=== PATIENT | male | born 1950 | race Two or more races ===

== ENCOUNTER 2017-04-17 00:25 | Emergency (ER) | payer OTHER ==
[~2017-04-17] VITALS: Ht 172.7 cm; Wt 88.5 kg
--- NOTE | 2017-04-17 00:35 | NUR ---
to bed 3 bib family members c/o worsening sob tonight. pt aaox4, place pt on cardiac monitoring, continuous pox, o2@2l/nc. er md at bedside to eval pt with orders received. will carry out orders.
[2017-04-17 00:56] LABS: BASOPHILS % (AUTO) 0.4 % (0.0-2.0); EOSINOPHILS # (AUTO) 0.3 /CMM (0.0-0.7); HEMATOCRIT 47 % (39-51); HEMOGLOBIN 15.8 g/dL (13.5-17.5); LYMPHOCYTES # (AUTO) 2.4 /CMM (0.8-4.8); LYMPHOCYTES % (AUTO) 27.2 % (20.0-44.0); MEAN CORPUSCULAR HEMOGLOBIN 33 PG (26.0-33.0); MEAN CORPUSCULAR HGB CONC 33 g/dl (31.0-36.0); MEAN CORPUSCULAR VOLUME 98 fL (80-96); MONOCYTES # (AUTO) 1.1 /CMM (0.1-1.30); MONOCYTES % (AUTO) 12.7 % (2.0-12.0); NEUTROPHILS # (AUTO) 4.8 /CMM (1.8-8.9); NEUTROPHILS % (AUTO) 55.7 % (43.0-81.0); PLATELET COUNT (AUTO) 173 /CMM (150-450); RDW COEFFICIENT OF VARIATION 13.7 (11.5-15.0); RED BLOOD CELL COUNT(AUTO) 4.85 MIL/uL (4.5-6.0); WHITE BLOOD COUNT (AUTO) 8.7 K/uL (4.3-11.0)
[2017-04-17 01:08] LABS: CARBON DIOXIDE 26 mmol/L (21-32); CHLORIDE 104 mmol/L (98-107); GLUCOSE 144 mg/dL (74-106); POTASSIUM 3.7 mmol/L (3.5-5.1); SODIUM SERUM 141 mmol/L (136-145); UREA NITROGEN, BLOOD 25 mg/dL (7-18)
[2017-04-17 01:16] LABS: TROPONIN I < 0.017 ng/mL (0.00-0.056)
[2017-04-17 01:18] LABS: INR 0.93 (0.87-1.13); PROTHROMBIN TIME 9.7 SECS (9.5-12.7)
[2017-04-17 01:21] LABS: ALANINE AMINOTRANSFERASE 30 U/L (12-78); ALBUMIN 3.5 g/dL (3.4-5.0); ALKALINE PHOSPHATASE 59 U/L (46-116); ASPARTATE AMINOTRANSFERASE 19 U/L (15-37); B-TYPE NATRIURETIC PEPTIDE 177 PG/ML (0-125); BILIRUBIN,DIRECT 0.1 mg/dL (0.0-0.2); BILIRUBIN,TOTAL 0.6 mg/dL (0.2-1.0)
--- NOTE | 2017-04-17 01:37 | NUR ---
rt at bedside to give hhn tx.
[2017-04-17] MEDS ORDERED: ALBUTEROL FS 2.5 MG/0.5 ML VIAL.NEB NEB ONE (02:00)
--- NOTE | 2017-04-17 02:29 | NUR ---
DR. LUDWIG AT BEDSIDE SPEAKING TO PT/FAMILY REGARDING RESULTS.
--- NOTE | 2017-04-17 02:42 | NUR ---
Patient discharged to home in stable condition. Written and verbal after care instructions given. Patient verbalizes understanding of instruction. ambulatory with a steady gait. pt aaox4 no acute distress noted, resp even and unlabored. pt sister at bedside to take pt home.
[2017-04-17 02:43] VITALS: BP 134/72
== END 2017-04-17 02:44 | disposition home or self-care (01) ==
LOC: ER 00:28
DX: J98.01 Acute bronchospasm (principal); I10 Essential (primary) hypertension
CPT/HCPCS: 36415; 71010; 80048; 80076; 83605; 83880; 84484; 85025; 85730; 87040 ×2; 87081; 93005; 93970; 94640; 99285; A4606; Z7610